=== PATIENT | male | born 1950 | race Caucasian/White ===

== ENCOUNTER 2018-11-22 18:28 | Emergency (ER) | payer MEDICARE ==
[2018-11-22 19:26] VITALS: RESP 18
[2018-11-22 21:29] LABS: Basophils % (A) 0 %; Eosinophils % (A) 1 %; HCT 42.5 % (39.0-53.0); HGB 14.6 gm/dL (13.0-17.5); Lymphocytes # (A) 0.8 k/uL (1.0-4.8); Lymphocytes % (A) 10 %; MCHC 34.3 g/dL (31.0-37.0); MCV 96.2 fL (80.0-100.0); Mean Platelet Volume 6.9; Monocytes # (A) 0.3 k/uL (0-1.0); Monocytes % (A) 4 %; Neutrophils # (A) 6.9 k/uL (1.3-7.7); Neutrophils % (A) 85 %; Platelet Count 209 k/uL (150-450); RBC 4.42 m/uL (4.30-5.90); RDW 12.6 % (11.5-15.5); WBC 8.2 k/uL (3.8-10.6)
--- NOTE | 2018-11-22 21:31 | ED ---
Abdominal Pain HPI - General Chief Complaint: Abdominal Pain Stated Complaint: upper abdominal pain, nausea, lower chest pain Time Seen by Provider: 11/22/18 21:12 Source: patient Mode of arrival: ambulatory Limitations: no limitations - History of Present Illness Initial Comments: This patient is 68-year-old man who presents with 1-2 days of abdominal complaints. He states that going on 2 days now he has felt like there is been a little bit of bloating in his upper abdomen. He states that when he woke this morning there was discomfort there that he describes as a fullness or bloating. He also noted some nausea throughout the day. He states that the symptoms have caused him to not eat anything since he had eaten last night. The patient has not had fevers or chills. No vomiting. He states that he has had 4-5 bowel movements today which is unusual for him but he did not describe it as being diarrhea. No blood or tarry stool. No change in urination. No testicular mass or pain. No symptoms to the legs. No chest symptoms. He states that the pain is constant, mild, bloating feeling. He has not noted worsening or relieving symptoms. MD Complaint: abdominal pain Onset/Timin -: days(s) Location: LUQ, RUQ, epigastric Radiation: back Migration to: no migration Severity: mild Quality: fullness Consistency: constant Improves With: nothing Worsens With: nothing Associated Symptoms: nausea - Related Data Home Medications Medication Instructions Recorded Confirmed Aspirin [[place] Aspirin EC] 81 mg PO DAILY 11/22/18 11/22/18 Atorvastatin [Lipitor] 10 mg PO DAILY 11/22/18 11/22/18 Calcium Carbonate [Calcium] 600 mg PO DAILY 11/22/18 11/22/18 Fluticasone Nasal [place] [Flonase 2 spr EA NOSTRIL DAILY 11/22/18 11/22/18 Nasal [place]] Glucosamine-Chondr 500-400Mg 1 tab PO DAILY 11/22/18 11/22/18 Montelukast [Singulair] 10 mg PO DAILY 11/22/18 11/22/18 Previous Rx's Medication Instructions Recorded Famotidine [Pepcid] 20 mg PO BID #14 tablet 11/23/18 Allergies Allergy/AdvReac Type Severity Reaction Status Date / Time No Known Allergies Allergy Verified 11/22/18 20:46 Review of Systems ROS Statement: Those systems with pertinent positive or pertinent negative responses have been documented in the HPI. ROS Other: All systems not noted in ROS Statement are negative. Constitutional: Denies: fever, chills Respiratory: Denies: cough, dyspnea Cardiovascular: Denies: chest pain, palpitations, edema Gastrointestinal: Reports: abdominal pain, nausea. Denies: vomiting, diarrhea, constipation, melena, hematochezia Genitourinary: Denies: dysuria, hematuria, testicular pain, testicular mass Musculoskeletal: Denies: back pain Skin: Denies: rash Neurological: Denies: headache, weakness, numbness Past Medical History Past Medical History: No Reported History History of Any Multi-Drug Resistant Organisms: None Reported Past Surgical History: Orthopedic Surgery Smoking Status: Never smoker Past Alcohol Use History: None Reported, Rare Past Drug Use History: None Reported General Exam Limitations: no limitations General appearance: alert, in no apparent distress Head exam: Present: atraumatic, normocephalic Eye exam: Present: normal appearance. Absent: scleral icterus, conjunctival injection ENT exam: Present: normal oropharynx, mucous membranes moist Neck exam: Present: normal inspection Respiratory exam: Present: normal lung sounds bilaterally. Absent: respiratory distress, wheezes, rales, rhonchi, stridor Cardiovascular Exam: Present: regular rate, normal rhythm, normal heart sounds. Absent: systolic murmur, diastolic murmur, rubs, gallop GI/Abdominal exam: Present: soft, normal bowel sounds. Absent: distended, tenderness, guarding, rebound, rigid, mass, pulsatile mass, hernia Extremities exam: Present: normal inspection, normal capillary refill. Absent: pedal edema, calf tenderness Back exam: Present: normal inspection. Absent: CVA tenderness (R), CVA tenderness (L) Neurological exam: Present: alert Skin exam: Present: warm, dry, intact, normal color. Absent: rash Course Vital Signs 11/22/18 19:21 Temperature 98.0 F Pulse Rate 66 Respiratory 18 Rate Blood Pressure 170/80 O2 Sat by Pulse 99 Oximetry Medical Decision Making - Lab Data Result diagrams: 11/22/18 20:54 11/22/18 20:54 Lab Results 11/22/18 11/22/18 11/22/18 Range/Units 20:54 20:54 20:54 WBC 8.2 (3.8-10.6) k/uL RBC 4.42 (4.30-5.90) m/uL Hgb 14.6 (13.0-17.5) gm/dL Hct 42.5 (39.0-53.0) % MCV 96.2 (80.0-100.0) fL MCH 33.0 (25.0-35.0) pg MCHC 34.3 (31.0-37.0) g/dL RDW 12.6 (11.5-15.5) % Plt Count 209 (150-450) k/uL Neutrophils % 85 % Lymphocytes % 10 % Monocytes % 4 % Eosinophils % 1 % Basophils % 0 % Neutrophils # 6.9 (1.3-7.7) k/uL Lymphocytes # 0.8 L (1.0-4.8) k/uL Monocytes # 0.3 (0-1.0) k/uL Eosinophils # 0.0 (0-0.7) k/uL Basophils # 0.0 (0-0.2) k/uL Sodium 138 (137-145) mmol/L Potassium 4.2 (3.5-5.1) mmol/L Chloride 107 (98-107) mmol/L Carbon Dioxide 23 (22-30) mmol/L Anion Gap 8 mmol/L BUN 15 (9-20) mg/dL Creatinine 0.81 (0.66-1.25) mg/dL Est GFR (CKD-EPI)AfAm >90 (>60 ml/min/1.73 sqM) Est GFR (CKD-EPI)NonAf >90 (>60 ml/min/1.73 sqM) Glucose 115 H (74-99) mg/dL Plasma Lactic Acid Andrew (0.7-2.0) mmol/L Calcium 9.4 (8.4-10.2) mg/dL Total Bilirubin 1.6 H (0.2-1.3) mg/dL AST 27 (17-59) U/L ALT 28 (21-72) U/L Alkaline Phosphatase 72 (38-126) U/L Troponin I <0.012 (0.000-0.034) ng/mL Total Protein 6.8 (6.3-8.2) g/dL Albumin 4.0 (3.5-5.0) g/dL Amylase 44 (30-110) U/L Lipase 112 (23-300) U/L Urine Color Urine Appearance (Clear) Urine pH (5.0-8.0) Ur Specific [place] (1.001-1.035) Urine Protein (Negative) Urine Glucose (UA) (Negative) Urine Ketones (Negative) Urine Blood (Negative) Urine Nitrite (Negative) Urine Bilirubin (Negative) Urine Urobilinogen (<2.0) mg/dL Ur Leukocyte Esterase (Negative) 11/22/18 11/22/18 Range/Units 21:43 23:30 WBC (3.8-10.6) k/uL RBC (4.30-5.90) m/uL Hgb (13.0-17.5) gm/dL Hct (39.0-53.0) % MCV (80.0-100.0) fL MCH (25.0-35.0) pg MCHC (31.0-37.0) g/dL RDW (11.5-15.5) % Plt Count (150-450) k/uL Neutrophils % % Lymphocytes % % Monocytes % % Eosinophils % % Basophils % % Neutrophils # (1.3-7.7) k/uL Lymphocytes # (1.0-4.8) k/uL Monocytes # (0-1.0) k/uL Eosinophils # (0-0.7) k/uL Basophils # (0-0.2) k/uL Sodium (137-145) mmol/L Potassium (3.5-5.1) mmol/L Chloride (98-107) mmol/L Carbon Dioxide (22-30) mmol/L Anion Gap mmol/L BUN (9-20) mg/dL Creatinine (0.66-1.25) mg/dL Est GFR (CKD-EPI)AfAm (>60 ml/min/1.73 sqM) Est GFR (CKD-EPI)NonAf (>60 ml/min/1.73 sqM) Glucose (74-99) mg/dL Plasma Lactic Acid Andrew 1.3 (0.7-2.0) mmol/L Calcium (8.4-10.2) mg/dL Total Bilirubin (0.2-1.3) mg/dL AST (17-59) U/L ALT (21-72) U/L Alkaline Phosphatase (38-126) U/L Troponin I (0.000-0.034) ng/mL Total Protein (6.3-8.2) g/dL Albumin (3.5-5.0) g/dL Amylase (30-110) U/L Lipase (23-300) U/L Urine Color Yellow Urine Appearance Clear (Clear) Urine pH 6.5 (5.0-8.0) Ur Specific [place] 1.021 (1.001-1.035) Urine Protein Negative (Negative) Urine Glucose (UA) Negative (Negative) Urine Ketones 2+ H (Negative) Urine Blood Negative (Negative) Urine Nitrite Negative (Negative) Urine Bilirubin Negative (Negative) Urine Urobilinogen <2.0 (<2.0) mg/dL Ur Leukocyte Esterase Negative (Negative) - EKG Data -: EKG Interpreted by Ms EKG shows normal: sinus rhythm, axis (Unusual P axis), intervals (Normal), QRS complexes (Normal) Rate: normal (Rate 62 bpm) Interpretation: nonspecific ST-T wave changes Disposition Clinical Impression: Abdominal pain Disposition: HOME SELF-CARE Condition: Good Instructions: Abdominal Pain (ED) Prescriptions: Famotidine [Pepcid] 20 mg PO BID #14 tablet Is patient prescribed a controlled substance at d/c from ED?: No Referrals: Raymon Costa MD [Primary Care Provider] - 1-2 days
[2018-11-22 21:40] LABS: ALT 28 U/L (21-72); AST 27 U/L (17-59); Alkaline Phosphatase 72 U/L (38-126); Amylase 44 U/L (30-110); Anion Gap 8 mmol/L; Blood Urea Nitrogen 15 mg/dL (9-20); Calcium 9.4 mg/dL (8.4-10.2); Carbon Dioxide 23 mmol/L (22-30); Chloride 107 mmol/L (98-107); Glucose 115 mg/dL (74-99); Lipase 112 U/L (23-300); Potassium 4.2 mmol/L (3.5-5.1); Sodium 138 mmol/L (137-145); Total Bilirubin 1.6 mg/dL (0.2-1.3); Total Protein 6.8 g/dL (6.3-8.2)
--- NOTE | 2018-11-22 21:41 | XR ---
EXAMINATION TYPE: XR KUB DATE OF EXAM: 11/22/2018 COMPARISON: NONE HISTORY: Abdominal pain TECHNIQUE: 2 views FINDINGS: 2 upright views show no sign of intestinal obstruction or pneumoperitoneum. Fecal pattern i s normal. Lung bases are clear. There are no pathologic calcifications. IMPRESSION: Nonacute abdomen.
[2018-11-22] MEDS ORDERED: SODIUM CHLORIDE 0.9% 500 ML 500 ML IV STA (21:44)
[2018-11-22] MEDS ORDERED: ONDANSETRON 4 MG/2 ML VIAL IVP STA (21:44)
--- NOTE | 2018-11-22 23:07 | US ---
EXAMINATION TYPE: US abdomen limited DATE OF EXAM: 11/22/2018 COMPARISON: NONE CLINICAL HISTORY: Pain, attention RUQ. Bloating EXAM MEASUREMENTS: Liver Length: 14.2 cm Gallbladder Wall: 0.2 cm CBD: 0.4 cm Right Kidney: 10.7 x 4.8 x 4.5 cm Pancreas: Obscured by bowel gas Liver: wnl Gallbladder: wnl Evidence for sonographic Boo's sign: No CBD: wnl Right Kidney: wnl IMPRESSION: Negative right upper quadrant abdominal sonogram. No gallstones or dilated ducts. No foca l liver defect.
[2018-11-22] MEDS ORDERED: MAG HYDROX/AL HYDROX/SIMETH 30 ML, HYOSCYAMINE ELIXIR 10 ML, CIMETIDINE HCL 300 MG, LID... PO STA ×4 (23:52)
[2018-11-22 23:53] LABS: Appearance,Urine Clear (Clear); Bilirubin,Urine Negative (Negative); Blood,Urine Negative (Negative); Color,Urine Yellow; Glucose,Urine (UA) Negative (Negative); Ketones,Urine 2+ (Negative); Leukocyte Esterase,Urine Negative (Negative); Nitrite,Urine Negative (Negative); PH, Urine 6.5 (5.0-8.0); Protein,Urine Negative (Negative); Specific Gravity,Urine 1.021 (1.001-1.035); Urobilinogen,Urine <2.0 mg/dL (<2.0)
[2018-11-23 01:14] VITALS: BP 159/81; PULSE 62; TEMP 98.5
== END 2018-11-23 01:16 | disposition home or self-care (01) ==
LOC: EC 18:28
DX: R10.11 Right upper quadrant pain (principal); R10.12 Left upper quadrant pain; R10.13 Epigastric pain; R11.0 Nausea; M54.9 Dorsalgia, unspecified; Z79.51 Long term (current) use of inhaled steroids; Z79.82 Long term (current) use of aspirin; Z79.899 Other long term (current) drug therapy
CPT/HCPCS: 36415; 93005; 80053; 82150; 83605; 83690; 84484; 85025; 81003; 74018; 76705; 99284; 96374; 96361 ×3; J2405

== ENCOUNTER → 2020-09-25 | Outpatient (CLI) | payer MEDICARE ==
--- NOTE | 2020-09-25 12:44 | US ---
EXAMINATION TYPE: US duplex aorta DATE OF EXAM: 09/25/2020 COMPARISON: NONE CLINICAL HISTORY: Abdominal aortic aneurysm w/o rupture. No HTN. No family hx of AAA. EXAM MEASUREMENTS: Abdominal Aorta: Proximal: 2.2 x 2.1 cm Mid: 2.0 x 2.1 cm Distal: 1.9 x 1.9 cm Bifurcation: Right- 0.9 x 1.1 cm Left- 1.0 x 1.0 cm Limited visualization of the proximal and mid aortic junction due to overlying bowel gas No AAA visualized in portions of aorta seen IMPRESSION: No abdominal aortic aneurysm seen.
== END | disposition home or self-care (01) ==
LOC: RADUSWWP 07:27
PROVIDERS: ATTEND Family Medicine
DX: I71.4 Abdominal aortic aneurysm, without rupture (principal)
CPT/HCPCS: 93979

== ENCOUNTER 2022-02-17 16:23 | Emergency (ER) | payer MEDICARE ==
[2022-02-17 16:37] VITALS: BP 167/85; PULSE 66; RESP 18; TEMP 98.9
--- NOTE | 2022-02-17 17:40 | XR ---
EXAMINATION TYPE: XR hand complete LT DATE OF EXAM: 02/17/2022 5:22 PM INDICATION: Patient age:Male; 71 years old; Reason for study: injury COMPARISON: None TECHNIQUE: 3 views of the left hand were obtained. FINDINGS: The second, third and fourth digits demonstrate soft tissue injury. There is an acute intra -articular fracture through the distal phalanx of the second digit as well as to the tuft of the thir d digit. Questionable third digit distal phalanx fracture seen only on lateral view, evaluation sligh tly limited due to overlying soft tissues. There is soft tissue swelling of the second, third and fourth digits. No radiopaque foreign bodies id entified. IMPRESSION: 1. Acute intra-articular fracture of the distal phalanges of the second digit. 2. Acute fracture through the distal phalanges of the third digit. 3. Suspected fracture of the distal phalanx of the fourth digit seen on lateral view only. 4. Soft tissue swelling of the second through fourth digits
[2022-02-17] MEDS ORDERED: LIDOCAINE 1% INJ 10MG/ML (20 ML MDV) SQ ONE (18:04)
--- NOTE | 2022-02-17 18:30 | ED ---
Upper Extremity HPI - General Chief Complaint: Extremity Injury, Upper Stated Complaint: Finger Lac Time Seen by Provider: 02/17/22 18:02 Source: patient, RN notes reviewed Mode of arrival: ambulatory Limitations: no limitations - History of Present Illness Initial Comments: This is a pleasant, [id number] 71-year-old male presents to the emergency department after sustaining lacerations to his second, third, and fourth fingers from a table saw. Patient was cutting wood at about 3 PM when the incident occurred. Patient had x-rays ordered in triage which does show open fractures to each finger including intra-articular fracture to the index finger. Patient's last tetanus is unknown. Patient has no history of immunosuppression or diabetes. Nonsmoker. No other injuries. Denies any significant pain. No headache, no fever or chills, no changes in vision or hearing, no sore throat or difficulty with speech, no neck pain, no chest pain or shortness of breath, no abdominal pain, no nausea or vomiting, no changes in urination or bowel movements, no numbness or tingling, no skin rashes or lesions. MD Complaint: Injury to:: left, finger Onset/Timin -: hour(s) - Related Data Home Medications Medication Instructions Recorded Confirmed Aspirin [[place] Aspirin EC] 81 mg PO DAILY 11/22/18 11/22/18 Atorvastatin [Lipitor] 10 mg PO DAILY 11/22/18 11/22/18 Calcium Carbonate [Calcium] 600 mg PO DAILY 11/22/18 11/22/18 Fluticasone Nasal [place] [Flonase 2 spr EA NOSTRIL DAILY 11/22/18 11/22/18 Nasal [place]] Glucosamine-Chondr 500-400Mg 1 tab PO DAILY 11/22/18 11/22/18 Montelukast [Singulair] 10 mg PO DAILY 11/22/18 11/22/18 Previous Rx's Medication Instructions Recorded Famotidine [Pepcid] 20 mg PO BID #14 tablet 11/23/18 Cephalexin [Keflex] 500 mg PO Q6HR #40 cap 02/17/22 HYDROcodone/APAP 5-325MG [[place] 1 tab PO Q6HR PRN 3 Days #12 tab 02/17/22 5-325] Allergies Allergy/AdvReac Type Severity Reaction Status Date / Time No Known Allergies Allergy Verified 11/22/18 20:46 Review of Systems ROS Statement: Those systems with pertinent positive or pertinent negative responses have been documented in the HPI. ROS Other: All systems not noted in ROS Statement are negative. Past Medical History Past Medical History: No Reported History History of Any Multi-Drug Resistant Organisms: None Reported Past Surgical History: Orthopedic Surgery Past Psychological History: No Psychological Hx Reported Smoking Status: Never smoker Past Alcohol Use History: None Reported, Rare Past Drug Use History: None Reported General Exam - General Exam Comments Initial Comments: Patient in no significant distress on initial evaluation. Cranial nerves II through XII grossly intact Limitations: no limitations General appearance: alert, in no apparent distress Eye exam: Present: normal appearance, PERRL, EOMI. Absent: scleral icterus, conjunctival injection, periorbital swelling ENT exam: Present: normal exam Neck exam: Present: normal inspection Respiratory exam: Present: normal lung sounds bilaterally. Absent: respiratory distress, wheezes, rales, rhonchi, stridor Cardiovascular Exam: Present: regular rate, normal rhythm, normal heart sounds. Absent: systolic murmur, diastolic murmur, rubs, gallop, clicks Extremities exam: Present: tenderness, normal capillary refill, other. Absent: normal inspection (Patient has multiple lacerations to distal aspects of the second through fourth digits of the left hand, involving the distal phalanxes. Appears to be adequate blood flow. Capillary refill is less than 2 seconds. Radial pulse 2+ out of 4. Patient's range of motion is limited at the DIP ), full ROM, pedal edema, joint swelling Back exam: Present: normal inspection Neurological exam: Present: alert, oriented X3, CN II-XII intact, other (Full range of motion and neurological function involving fingers of the left hand with respect to all joints aside from the DIP of the index finger. Sensation intact to light touch and pinprick.). Absent: motor sensory deficit Psychiatric exam: Present: normal affect, normal mood Course Vital Signs 02/17/22 16:32 Temperature 98.9 F Pulse Rate 66 Respiratory 18 Rate Blood Pressure 167/85 O2 Sat by Pulse 98 Oximetry Procedures - Laceration Laceration #1 Consent Obtained: verbal consent Site: upper extremity (Left index finger) Size (cm): 2 Description: irregular Depth: simple, single layer Anesthesia Technique: nerve block (Digital block) Amount (mls): 2 Pre-repair: wound explored, irrigated extensively Size of Sutures: 4-0 Number of Sutures: 2 Technique: simple, interrupted Patient Tolerated Procedure: well, no complications Laceration #2 Consent Obtained: verbal consent Indication: laceration Site: upper extremity (Left middle finger) Size (cm): 3 Description: irregular Depth: simple, single layer Anesthetic Used: lidocaine 1%, without epi Anesthesia Technique: nerve block (Digital block) Amount (mls): 2 Pre-repair: wound explored, irrigated extensively, extensive debridement (2 x 2 centimeters with sterile scissors and forceps) Type of Sutures: nylon Size of Sutures: 4-0 Number of Sutures: 3 Technique: simple, interrupted Patient Tolerated Procedure: well, no complications Laceration #3 Consent Obtained: verbal consent Indication: laceration Site: upper extremity (Left ring finger) Size (cm): 2 Description: irregular Depth: simple, single layer Anesthetic Used: lidocaine 1% Anesthesia Technique: nerve block (Digital block) Amount (mls): 2 Pre-repair: wound explored, irrigated extensively, deep structures intact, wound margins revised Type of Sutures: nylon Size of Sutures: 4-0 Number of Sutures: 2 Technique: simple, interrupted Patient Tolerated Procedure: well, no complications Medical Decision Making - Medical Decision Making Patient has lacerations involving the distal aspect of the left second through fourth fingers which require evaluation by hand surgery. Discussed case with Dr. [facility]. We'll have the patient follow up with Dr. Enrique. Wound care discussed in detail. Return if follow-up parameters discussed in detail. All questions answered. Starter pack for cephalexin and Tylenol 3. Patient was told to return to the ER for any signs or symptoms worsen. Told to return immediately if any other problems arise. All questions answered. Treatment plan discussed. Patient in agreement Every effort has been made to ensure accuracy of this dictation. However, due to the limitations of electronic medical records and dictation devices, errors in charting still occur. Disposition Clinical Impression: Fracture of finger, left, open Narrative: "Rashes to the distal aspect of the left index finger, middle finger, and ring finger. Displaced fracture of the distal camila of the left index finger and middle finger. Both comminuted. Intra-articular fracture at the DIP of the left index finger. Left forefinger has a distal tuft fracture as well. Disposition: HOME SELF-CARE Condition: Good Instructions (If sedation given, give patient instructions): Hand Fracture (ED) Additional Instructions: Follow-up with orthopedics as directed. Leave the dressing in place. Call tomorrow morning at 8 AM. Return to the ER if any problems arise. Take antibiotics as directed. Return to the ER immediately if any symptoms worsen, new symptoms arise, or any other problems develop. Keep her hand elevated, suture removal per orthopedics Prescriptions: Cephalexin [Keflex] 500 mg PO Q6HR #40 cap HYDROcodone/APAP 5-325MG [[place] 5-325] 1 tab PO Q6HR PRN 3 Days #12 tab PRN Reason: Pain Is patient prescribed a controlled substance at d/c from ED?: Yes When asked, does pt state using other controlled substances?: No If prescribed controlled substance>3 days was MAPS reviewed?: Prescribed <3 Days Referrals: Rachell Enrique DO [Doctor of Osteopathic Medicine] - 02/18/22 8:00 am Time of Disposition: 19:51
[2022-02-17] MEDS ORDERED: BACITRACIN OINT 1 EACH PACKET TOPICAL ONE (19:27)
[2022-02-17] MEDS ORDERED: ACET/COD 300 MG/30 MG STARTER PACK 6 TAB BTL PO STA (19:50)
[2022-02-17] MEDS ORDERED: CEPHALEXIN 500MG STARTER PACK 4 CAP BTL PO STA (19:50)
[2022-02-17] MEDS ORDERED: DIPH,PERTUS(ACELL)TETVAC-LF 0.5 ML VIAL IM ONE (20:11)
== END 2022-02-17 20:37 | disposition home or self-care (01) ==
LOC: EC 16:23
DX: S62.631B Displaced fracture of distal phalanx of left index finger, initial encounter for open fracture (principal); W26.8XXA Contact with other sharp object(s), not elsewhere classified, initial encounter; Y93.H2 Activity, gardening and landscaping
CPT/HCPCS: 73130; 90715; 99283; 96365; 12014; 90471; J0690; J2001

== ENCOUNTER → 2023-02-09 | Outpatient (CLI) | payer MEDICARE ==
--- NOTE | 2023-02-10 09:23 | MR ---
EXAMINATION TYPE: MR brain wo/w con DATE OF EXAM: 02/09/2023 9:50 AM CLINICAL INDICATION:Male, 72 years old with history of H53.9 CHANGE IN VISION; Change in vision, TIA COMPARISON: None TECHNIQUE: Multi planar, multi sequence imaging was performed through the brain including: T1, T2, In version recovery, susceptibility weighted imaging and gradient echo imaging and Diffusion weighted im aging. The patient was then given intravenous contrast and multi planar, T1 fat-saturation images wer e obtained. IV Contrast: 8 cc Gadavist FINDINGS: The globes and orbits are symmetrical the intraconal and extraconal fat is maintained. The occipital lobe is grossly unremarkable. The optic chiasm is within normal limits.The foley-white junctions, vent ricular system, basal cisterns appear unremarkable. Diffusion-weighted imaging shows no evidence of r estricted diffusion to suggest acute/subacute infarct. Intracranial arterial flow voids are maintaine d. Midline structures show no abnormality. Scattered foci of high T2 signal intensity are seen within the periventricular white matter. The susceptibility weighted images do not reveal any evidence for micro-hemorrhage. After administration of gadolinium, no abnormal enhancement is seen. The bone marrow signal is within normal limits. Paranasal sinuses and mastoid air cells: Left maxillary sinus retention cyst. Visualized orbits: Orbital contents are intact. IMPRESSION: 1. No evidence of intracranial mass, acute/subacute infarct, or abnormal enhancement. 2. Nonspecific white matter changes, likely related to small vessel ischemic disease
== END | disposition home or self-care (01) ==
LOC: RADMRIMAIN 08:44
PROVIDERS: ATTEND Internal Medicine
DX: H53.9 Unspecified visual disturbance (principal); R90.82 White matter disease, unspecified
CPT/HCPCS: 70553; A9585

== ENCOUNTER → 2023-02-11 | Outpatient (CLI) | payer MEDICARE ==
--- NOTE | 2023-02-11 08:01 | US ---
EXAMINATION TYPE: US duplex aorta DATE OF EXAM: 02/11/2023 COMPARISON: Aortic ultrasound 09/25/2020 CLINICAL HISTORY: I65.23 Atherosclerosis yosvany carotids, I71.40 AAA. TECHNIQUE: Multiple sonographic images of the abdominal aorta are obtained. FINDINGS: EXAM MEASUREMENTS: Abdominal Aorta: Proximal: 1.8 x 1.8cm Mid: 2.0 x 1.8cm Distal: 2.6 x 2.5cm Bifurcation: RT: 1.1 x 1.1cm LT: 1.1 x 1.1cm MANAGER ELECTRICAL NOTES: *limited visualization of proximal aorta due to overlying bowel gas. No evidence o f AAA at this time, slight bulging of distal aorta, still measuring WNL Distal abdominal aortic fusiform ectasia. IMPRESSION: Distal abdominal aortic ectasia without criteria for aneurysm.
--- NOTE | 2023-02-11 08:03 | US ---
EXAMINATION TYPE: US carotid duplex BILAT DATE OF EXAM: 02/11/2023 COMPARISON: NONE CLINICAL HISTORY: I65.23 Atherosclerosis yosvany carotids, I71.40 AAA. TECHNIQUE: Carotid duplex ultrasound examination. Indirect Doppler criteria was utilized. FINDINGS: EXAM MEASUREMENTS: RIGHT: Peak Systolic Velocity (PSV) cm/sec ----- Right CCA: 87.7 ----- Right ICA: 147 ----- Right ECA: 146 ICA/CCA ratio: 1.7 RIGHT: End Diastole cm/sec ----- Right CCA: 21.7 ----- Right ICA: 44.4 ----- Right ECA: 21.4 LEFT: Peak Systolic Velocity (PSV) cm/sec ----- Left CCA: 98.5 ----- Left ICA: 216 ----- Left ECA: 170 ICA/CCA ratio: 2.2 LEFT: End Diastole cm/sec ----- Left CCA: 25.1 ----- Left ICA: 50.4 ----- Left ECA: 23.7 VERTEBRALS (direction of flow): Right Vertebral: Antegrade Left Vertebral: Antegrade Rhythm: Normal ROUSTABOUT PUSHER NOTES: Moderate plaque bilateral bifurcations. Increased velocities right ICA, right ECA, left ICA, left ECA IMPRESSION: Moderate atherosclerotic plaque at both carotid bifurcations. Approximately 50-69% stenosis at the origins of the bilateral internal carotid arteries with left greater than right. Criteria for Assigning % of Stenosis / Diameter reduction (Estimation based on the indirect measurements of the internal carotid artery velocities (ICA PSV). 1. Normal (no stenosis)=ICA PSV < 125 cm/s: ratio < 2.0: ICA EDV<40 cm/s. 2. Less than 50% stenosis=ICA PSV < 125 cm/s: ratio < 2.0: ICA EDV<40 cm/s. 3. 50 to 69% stenosis=ICA PSV of 125 to 230 cm/s: ration 2.0 ? 4.0: ICA EDV 40-100 cm/s. 4. Greater than 70% stenosis to near occlusion= ICA PSV > 230 cm/s: ratio > 4.0: ICA EDV > 100 cm/s. 5. Near occlusion= ICA PSV velocities may be low or undetectable: variable ratio and ICA EDV. 6. Total occlusion=unable to detect flow.
== END | disposition home or self-care (01) ==
LOC: RADUSWWP 06:53
PROVIDERS: ATTEND Internal Medicine
DX: I65.23 Occlusion and stenosis of bilateral carotid arteries (principal); I77.811 Abdominal aortic ectasia
CPT/HCPCS: 93880; 93979

== ENCOUNTER → 2023-03-29 | Outpatient (CLI) | payer MEDICARE ==
--- NOTE | 2023-03-29 18:42 | CA ---
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 LV Systolic Volume MOD 4C 45.7 cm??? LV Ejection Fraction MOD 4C 50.3 % LV Diastolic Length 4C 8.4 cm LV Systolic Length 4C 7.2 cm LV Diastolic Volume MOD 2C 88.8 cm??? LV Systolic Volume MOD 2C 39.7 cm??? LV Ejection Fraction MOD 2C 55.4 % LV Diastolic Length 2C 8.8 cm LV Systolic Length 2C 7.5 cm LA Volume 44.7 cm??? 18 - 58 / 22 - 52 cm??? M-MODE Aortic Root Diameter MM 3.6 cm MV E Point Septal Separation 0.5 cm AV Cusp Separation MM 2.2 cm DOPPLER AV Peak Velocity 109.4 cm/s AV Peak Gradient 4.8 mmHg MV Area PHT 2.2 cm??? Mitral E Point Velocity 66.9 cm/s Mitral A Point Velocity 98.2 cm/s Mitral E to A Ratio 0.7 MV Deceleration Time 351.9 ms TR Peak Velocity 237.4 cm/s TR Peak Gradient 22.5 mmHg Right Ventricular Systolic Press 26.4 mmHg FINDINGS Left Ventricle Left ventricular ejection fraction is estimated at 55-60 %. Left ventricular cavity size normal. Moderate concentric left ventricular hypertrophy. No obvious regional wall motion abnormalities.left ventricular cavity size normal. Right Ventricle Mild right ventricular dilatation. Right ventricular systolic pressure within normal limits. Right Atrium Normal right atrial size. Left Atrium Normal left atrial size. Mitral Valve Structurally normal mitral valve. No mitral stenosis, or prolapse.trace to mild mitral regurgitation. Aortic Valve Trileaflet aortic valve. Aortic valve sclerosis. No aortic valve stenosis or regurgitation. Tricuspid Valve Structurally normal tricuspid valve. Trace to mild tricuspid regurgitation. Pulmonic Valve Structurally normal pulmonic valve. Trace pulmonic regurgitation. Pericardium Normal pericardium. No pericardial effusion. Aorta Normal size aortic root and proximal ascending aorta. CONCLUSIONS 1. Normal left ventricle size and systolic function 2. Trace to mild mitral and tricuspid regurgitation Previewed by: Dr. Chey Chaves MD (Electronically Signed) Final Date: 29 Mar 2023 18:41
== END | disposition home or self-care (01) ==
LOC: RADECHMAIN 12:12
PROVIDERS: ATTEND Internal Medicine
DX: I08.1 Rheumatic disorders of both mitral and tricuspid valves (principal); H34.12 Central retinal artery occlusion, left eye
CPT/HCPCS: 93225; 93226; 93306

== ENCOUNTER → 2023-06-08 | Outpatient (CLI) | payer MEDICARE ==
--- NOTE | 2023-06-08 10:36 | US ---
EXAMINATION TYPE: US liver DATE OF EXAM: 06/08/2023 COMPARISON: [facility] 2018 CLINICAL INDICATION: Male, 72 years old with history of R94.5 ABNORMAL RESULTS OF LIVER FUNCTION STUD IES; Elevated liver enzymes. TECHNIQUE: Multiple sonographic images of the right upper quadrant are obtained. FINDINGS: EXAM MEASUREMENTS: Liver Length: 13.0 cm Gallbladder Wall: 0.3 cm CBD: Obscured Right Kidney: 11.2 x 6.4 x 5.4 cm LICENSED OCCUPATIONAL THERAPY ASSISTANT NOTES: Limited due to gas. Pancreas: Obscured Liver: Increased echogenicity. Appears coarse and heterogeneous. Gallbladder: Appears wnl Evidence for sonographic Boo's sign: No CBD: Obscured Right Kidney: No hydronephrosis or masses seen IMPRESSION: Coarsened hepatic echotexture suggestive of hepatocellular disease. No suspicious observations.
== END | disposition home or self-care (01) ==
LOC: RADUSWWP 09:29
PROVIDERS: ATTEND Emergency Medicine Emergency Medical Services
DX: R94.5 Abnormal results of liver function studies (principal); R79.89 Other specified abnormal findings of blood chemistry
CPT/HCPCS: 76705

== ENCOUNTER 2024-07-18 09:58 | Day surgery (SDC) | payer MEDICARE, OTHER ==
[2024-07-18] MEDS ORDERED: LACTATED RINGERS 1,000 ML BAG ONE (11:19)
[2024-07-18] MEDS ORDERED: PROPOFOL 10 MG/ML 20 ML VIAL IV ONE (11:19)
--- NOTE | 2024-07-20 15:57 | PCN ---
PROCEDURE NOTE REQUESTING PHYSICIAN: Patrice Wallace. BRIEF HISTORY: The patient is a 73-year-old pleasant white male scheduled for an elective colonoscopy as a part of evaluation of prior history of colon polyps. Last colonoscopy was 5 years ago. PROCEDURE PERFORMED: Colonoscopy with biopsy. PREOPERATIVE DIAGNOSIS: History of colon polyps. ANESTHESIA: IV sedation per Anesthesia. DESCRIPTION OF PROCEDURE: After informed consent was obtained from the patient, he was brought in to the endoscopy unit. IV conscious sedation administered by Anesthesia under continuous monitoring. Initial digital rectal examination was normal. The Olympus CF-180 video colonoscope was then inserted in the rectum and gradually advanced to the cecum. Careful examination was performed and the scope was gradually being withdrawn. The ileocecal valve and appendiceal orifice were visualized and appeared normal. The prep was excellent. At the base of the cecum, there was a 3 to 4 mm polyp that was removed by cold biopsy. Ascending colon, transverse colon appeared normal. In the transverse colon, there was a 3 mm polyp that was removed by cold biopsy. Descending colon, sigmoid colon, and rectum appeared normal. In the rectum, retroflexion was performed, no lesions were noted, and the patient tolerated the procedure well. IMPRESSION: 1. A 5-mm cecal polyp, status post removal by cold biopsy. 2. A 3-mm transverse colon polyp status post cold biopsy. RECOMMENDATIONS: Findings of this examination were discussed with the patient as well as his family. He was advised to follow up with the biopsy results and if the biopsy reveals adenoma, he can have a repeat colonoscopy in 5 years. MMODL / IJN: [id number] /
== END 2024-07-18 12:25 ==
LOC: ORWHC2ENDO 09:58
PROVIDERS: ATTEND Internal Medicine Gastroenterology
DX: Z12.11 Encounter for screening for malignant neoplasm of colon (principal); D12.4 Benign neoplasm of descending colon; K52.9 Noninfective gastroenteritis and colitis, unspecified; E78.5 Hyperlipidemia, unspecified; F17.200 Nicotine dependence, unspecified, uncomplicated; Z86.73 Personal history of transient ischemic attack (TIA), and cerebral infarction without residual deficits; Z86.010 Personal history of colon polyps; Z79.899 Other long term (current) drug therapy
CPT/HCPCS: 45380; 88305

== ENCOUNTER 2024-12-30 18:05 | Emergency (ER) | payer MEDICARE, OTHER ==
[2024-12-30 18:16] VITALS: TEMP 98.2
--- NOTE | 2024-12-30 18:40 | ED ---
General Adult HPI - General Chief complaint: Fall Stated complaint: fall Time Seen by Provider: 12/30/24 18:29 Source: patient, RN notes reviewed Mode of arrival: ambulatory Limitations: no limitations - History of Present Illness Initial comments: Patient is a 74-year-old male presenting to the emergency department with complaints of low back pain. Patient had a fall earlier this morning off a trailer. Patient landed directly on his lower back. Patient did have some discomfort getting up earlier however felt much better on the ride here and was able to walk to the emergency department without difficulty. No incontinence or retention of bowel or bladder. No leg weakness or loss of sensation. No head injury or loss of consciousness - Related Data Home Medications Medication Instructions Recorded Confirmed Aspirin [[place] Aspirin EC] 81 mg PO DAILY 11/22/18 11/22/18 Atorvastatin [Lipitor] 10 mg PO DAILY 11/22/18 11/22/18 Calcium Carbonate [Calcium] 600 mg PO DAILY 11/22/18 11/22/18 Fluticasone Nasal [place] [Flonase 2 spr EA NOSTRIL DAILY 11/22/18 11/22/18 Nasal [place]] Glucosamine-Chondr 500-400Mg 1 tab PO DAILY 11/22/18 11/22/18 Montelukast [Singulair] 10 mg PO DAILY 11/22/18 11/22/18 Previous Rx's Medication Instructions Recorded Famotidine [Pepcid] 20 mg PO BID #14 tablet 11/23/18 Cephalexin [Keflex] 500 mg PO Q6HR #40 cap 02/17/22 HYDROcodone/APAP 5-325MG [[place] 1 tab PO Q6HR PRN 3 Days #12 tab 02/17/22 5-325] Cyclobenzaprine [Flexeril] 10 mg PO TID PRN #20 tablet 12/30/24 Ibuprofen [Motrin] 600 mg PO Q6HR PRN #20 tab 12/30/24 Allergies Allergy/AdvReac Type Severity Reaction Status Date / Time No Known Allergies Allergy Verified 12/30/24 18:16 Review of Systems ROS Statement: Those systems with pertinent positive or pertinent negative responses have been documented in the HPI. ROS Other: All systems not noted in ROS Statement are negative. Constitutional: Denies: fever Eyes: Denies: eye pain ENT: Denies: ear pain Cardiovascular: Denies: chest pain Gastrointestinal: Denies: abdominal pain Musculoskeletal: Reports: as per HPI, back pain Neurological: Denies: headache, weakness, confusion Past Medical History Past Medical History: No Reported History History of Any Multi-Drug Resistant Organisms: None Reported Past Surgical History: Orthopedic Surgery Past Psychological History: No Psychological Hx Reported Smoking Status: Never smoker Past Alcohol Use History: Rare Past Drug Use History: None Reported General Exam Limitations: no limitations General appearance: alert, in no apparent distress Head exam: Present: atraumatic Eye exam: Present: normal appearance Neck exam: Present: normal inspection Respiratory exam: Present: normal lung sounds bilaterally Cardiovascular Exam: Present: regular rate, normal rhythm GI/Abdominal exam: Present: soft. Absent: tenderness Extremities exam: Present: normal inspection, full ROM. Absent: tenderness Back exam: Present: tenderness (Mild tenderness mid lumbar spine) Neurological exam: Present: alert. Absent: motor sensory deficit Expanded Sensory exam: Lower Extremity Light Touch: Normal Motor strength exam: RLE: 5, LLE: 5 Psychiatric exam: Present: normal affect, normal mood Skin exam: Present: normal color Course Vital Signs 12/30/24 18:13 Temperature 98.2 F Pulse Rate 69 Respiratory 16 Rate Blood Pressure 163/68 O2 Sat by Pulse 97 Oximetry Medical Decision Making - Medical Decision Making Was pt. sent in by a medical professional or institution (Dr. PA, AIR PRESS OPERATOR, urgent care, hospital, or [facility]...) When possible be specific @ -No Did you speak to anyone other than the patient for history (EMS, parent, family, police, friend...)? What history was obtained from this source @ -No Did you review nursing and triage notes (agree or disagree)? Why? @ -I reviewed and agree with nursing and triage notes Were old charts reviewed (outside hosp., previous admission, EMS record, old EKG, old radiological studies, urgent care reports/EKG's, [facility] records)? Report findings @ -No old charts were reviewed Differential Diagnosis (chest pain, altered mental status, abdominal pain women, abdominal pain men, vaginal bleeding, weakness, fever, dyspnea, syncope, headache, dizziness, GI bleed, back pain, seizure, CVA, palpatations, mental health, musculoskeletal)? @ -Differential Back Pain: Strain, zoster, cauda equina syndrome, epidural abscess, vertebral osteomyelitis, discitis, fracture, subluxation, disc herniation, DJD, spinal stenosis, dissection, AAA, pancreatitis, peptic ulcer disease, pyelonephritis, kidney stone, this is not meant to be an all-inclusive list. EKG interpreted by me (3pts min.). @ -As above X-rays interpreted by me (1pt min.). @ -X-ray concerning for T12 CT interpreted by me (1pt min.). @ -CT spine shows T12 superior endplate fracture with possible involvement to the T11/T12 disc U/S interpreted by me (1pt. min.). @ -None done What testing was considered but not performed or refused? (CT, X-rays, U/S, labs)? Why? @ -None What meds were considered but not given or refused? Why? @ -None Did you discuss the management of the patient with other professionals (professionals i.e. , PA, AIR PRESS OPERATOR, lab, RT, psych nurse, community mental health social worker, barrel cleaner, teacher, seal delivery vehicle officer, case hardener)? Give summary @ -Case discussed with Dr. Goodman barraza who did review the films and recommends discharge with follow-up this week at his office and providing TLSO brace Was smoking cessation discussed for >3mins.? @ -No Was critical care preformed (if so, how long)? @ -No Were there social determinants of health that impacted care today? How? (Homelessness, low income, unemployed, alcoholism, drug addiction, transportation, low edu. Level, literacy, decrease access to med. care, senior care, rehab)? @ -No Was there de-escalation of care discussed even if they declined (Discuss DNR or withdrawal of care, Hospice)? DNR status @ -No What co-morbidities impacted this encounter? (DM, HTN, Smoking, COPD, CAD, Cancer, CVA, ARF, Chemo, Hep., AIDS, mental health diagnosis, sleep apnea, morbid obesity)? @ -None Was patient admitted / discharged? Hospital course, mention meds given and route, prescriptions, significant lab abnormalities, going to OR and other pertinent info. @ -Patient presents with fall and has T12 fracture. Patient reevaluated and updated. Patient to be discharged with orthopedic follow-up Undiagnosed new problem with uncertain prognosis? @ -No Drug Therapy requiring intensive monitoring for toxicity (Heparin, Nitro, Insulin, Cardizem)? @ -No Were any procedures done? @ -No Diagnosis/symptom? @ -T12 fracture Acute, or Chronic, or Acute on Chronic? @ -Acute Uncomplicated (without systemic symptoms) or Complicated (systemic symptoms)? @ -Default Side effects of treatment? @ -No Exacerbation, Progression, or Severe Exacerbation? @ -No Poses a threat to life or bodily function? How? (Chest pain, [place], DC, pneumonia, PE, COPD, DKA, ARF, appy, cholecystitis, CVA, Diverticulitis, Homicidal, Suicidal, threat to staff... and all critical care pts) @ -No Disposition Clinical Impression: T12 vertebral fracture Disposition: HOME SELF-CARE Condition: Stable Instructions (If sedation given, give patient instructions): Vertebral Compression Fracture (ED) Additional Instructions: Prescription sent to pharmacy. Please do follow-up with your primary care physician in the next couple of days for recheck. Please follow-up with Dr. Uriostegui this week, number provided. Return for increased pain, weakness, loss of sensation, loss of control of bowel or bladder, worsening symptoms or any other concerns Prescriptions: Cyclobenzaprine [Flexeril] 10 mg PO TID PRN #20 tablet PRN Reason: Pain Ibuprofen [Motrin] 600 mg PO Q6HR PRN #20 tab PRN Reason: Pain Is patient prescribed a controlled substance at d/c from ED?: No Referrals: Patrice Wallace DO [Primary Care Provider] - 1-2 days Manuel Uriostegui DO [Doctor of Osteopathic Medicine] - 1-2 days Time of Disposition: 20:39
[2024-12-30] MEDS: KETOROLAC 15 MG/ML 1 ML VIAL IM STA (19:00)
[2024-12-30] MEDS: ORPHENADRINE 30 MG/ML 2 ML VIAL IM STA (19:00)
--- NOTE | 2024-12-30 19:57 | XR ---
EXAMINATION TYPE: XR lumbar spine 2 or 3V DATE OF EXAM: 12/30/2024 6:49 PM COMPARISON: CT lumbar spine 2024. CLINICAL INDICATION: Male, 74 years old with history of fall; [facility] TECHNIQUE: XR lumbar spine 2 or 3V - Frontal, lateral and coned in L5-S1 lateral views of the spine. FINDINGS: 5 lumbar type vertebral bodies are present for the purposes of this examination. Multilevel intervertebral disc space loss. Acute fracture deformity of the T12 superior endplate with approxima tely 40% vertebral body height loss. Celsite atherosclerotic disease of the abdominal aorta. Multilev el facet arthropathy, stress at L4-L5 and L5-S1. No significant spondylolisthesis. IMPRESSION: Suspected mild to moderate compression deformity of the T12 superior endplate. [facility], , 12/30/2024 7:55 PM
--- NOTE | 2024-12-30 20:03 | CT ---
EXAMINATION TYPE: CT lumbar spine wo con DATE OF EXAM: 12/30/2024 7:20 PM COMPARISON: Same day lumbar sacral spine radiograph.. CLINICAL INDICATION: Male, 74 years old with history of t12 fx; PHH, Fall, Lower back pain TECHNIQUE: Multiple axial images were obtained from the midportion of T11 through the sacroiliac cheryl nts. Soft tissue and bone windows in coronal and sagittal planes were obtained and reviewed. 3-D ref ormats of the bones were created on a separate workstation and submitted for review. CT DLP: 1224.6 mGycm, Automated exposure control for dose reduction was used. FINDINGS: Alignment: There are 5 lumbar type vertebral bodies within normal alignment. Acute fracture deformity of the T12 vertebral body with mild (approximately 20-30 %) superior endplat e height loss. Fracture line extends into the T11/T12 intervertebral disc space but does not involve the posterior cortex. No evidence of retropulsion. Remaining visualized thoracic and lumbar spine jaida tebral body heights appear maintained. Osseous structures appear qualitatively demineralized. No evid ence of spondylolysis or significant spondylolisthesis. Mild to moderate multilevel intervertebral di sc space loss and evidence of anterior ossified formation and. Facet arthropathy and mild disc bulgin g at multiple levels causes varying degrees of neural foraminal narrowing. No evidence of high-grade spinal canal stenosis. Partially visualized aneurysmal dilatation of the infrarenal abdominal aorta, evaluate given lack of IV contrast. IMPRESSION: Acute fracture deformity of the T12 vertebral body with mild superior endplate height loss. Fracture line extends into the T11/T12 intervertebral disc space but does not involve the posterior cortex. No evidence of retropulsion. No high-grade spinal canal stenosis. [facility], , 12/30/2024 8:01 PM
[2024-12-30] MEDS: ACET/COD 300 MG/30 MG STARTER PACK 6 TAB BTL PO STA (20:46)
[2024-12-30 20:52] VITALS: BP 133/77; PULSE 59; RESP 18
== END 2024-12-30 20:53 | disposition home or self-care (01) ==
LOC: EC 18:05
DX: S22.089A Unspecified fracture of T11-T12 vertebra, initial encounter for closed fracture (principal); W19.XXXA Unspecified fall, initial encounter
CPT/HCPCS: 72100; 72131; 99284; 96372; J2360; J1885

== ENCOUNTER 2025-01-21 06:33 | Day surgery (SDC) | payer MEDICARE, OTHER ==
--- NOTE | 2025-01-20 15:52 | P.HPOR ---
History of Present Illness H&P Date: 01/03/25 .D:Date: 01/03/25 : 10:30am .T:Title: Jose Daniel Gomez [facility] H&P Age: 74 year Height: 5'8" Weight: 190 lbs BP:130/78 BMI: 28.92 kg/m2 Occupation: Retired VAS: 2 ATTENDING ATTESTATION: I have personally examined the patient and reviewed the history, physical examination, assessment, and plan as documented by MADDIE Martin. I agree with the findings and plan as documented above. I was present for a archer portion of the visit and participated in medical decision making. Total visit time was approximately 30 minutes, with more than 50% spent in counseling regarding diagnosis, prognosis and treatment options. CLINICAL SUMMARY: 74-year-old male presenting with acute T12 compression fracture following a fall from standing height on 12/29/24. Imaging confirms acute fracture with mild superior endplate height loss, without retropulsion or spinal canal stenosis. Patient reports pain exacerbated by positional changes, currently well- controlled with VAS 2/10. Neurologically intact with normal motor strength and sensation except for T12 dermatomal deficit. After discussing treatment options, patient has elected to proceed with T12 kyphoplasty. Conservative measures including TLSO brace and activity modifications have been implemented in the interim. Surgical consent process initiated with detailed discussion of risks, benefits, and alternatives. CC: Thoracic injury DOI: 12/29/24 DOS: n/a IMPRESSION: It was my pleasure to have seen and examined Vince. I reviewed the patient's clinical syndrome, physical findings, and imaging studies during the appointment today. It is my impression that the patient has a diagnosis of. 1. Acute T12 vertebral compression fracture 2. Mechanical low back pain 3. Fall from standing PLAN: -Limit lifting, bending, twisting, pushing, or pulling to nothing >5lbs. -I discussed treatment options with the patient, including operative and non- operative options, and they have elected to proceed with the following surgical procedure: T12 Kyphoplasty The indications, risks, benefits, and alternatives to surgery were discussed with the patient at length. Specifically (but not limited to) the risks of infection, stiffness, recurrence of symptoms, need for revision surgery, local numbness, neurovascular injury, and blood clots were discussed. The patient's questions were answered. The decision to proceed was made. Consent will be obtained for the procedure. -OK for massage or other alternative treatment modalities as able. If it exacerbates your sx do not continue -Ambulate daily -Take medications as directed -Ice and rest for pain and swelling control. FOLLOW UP:Post procedure with Dr. Uriostegui HISTORY: Mr. Sampson presents to the office today, 01/03/25, for an evaluation of his thoracic injury. Patient describes an aching and intermittent sharp mid-low back pain with an onset of 12/29/24 after he fell backward landing on his back. Patient states he was able to get up aftr incident and went to [facility] ER for evaluation. Patient was informed he has a T12 vertebral compression fracture. He was ordered a TLSO brace and provided IBU 800mg for symptom management. Patient states his pain is exacerbated with changing position from sitting to standing and getting up from a laying position. Otherwise patient denies any f/c/sob/cp, perineal numbness or tingling, bowel or bladder incontinence/retention. Patient is ambulatoryindependently. The patients' past social, medical, family, surgical history, as well as review of systems, have been reviewed. Please refer to the Neurosurgery History and Physical form that has been scanned into our electronic medical record system. 16 points review of systems completed and as stated in HPI, all other systems reviewed are negative. PAST TREATMENTS: Physical Therapy in the past 6 months? No Did it help? n/a Physician Directed Home Exercises: No Medications: IBU 800mg Alternative Interventions: Chiropractic: No Massage therapy: No R.I.C.E: Yes Brace: Yes Injections: No P3 Social History: .CE:Clinical Elements: Smoking: none P3 .CE:Clinical Elements: Alcohol: occasional alcohol P3 P3 Family History: Reviewed, see appropriate section of the chart for details. P2 Past Medical History: Reviewed, see appropriate section of the chart for details. P1 Current Medications: Rx: aspirin 81 mg tablet,delayed release Ref: 0 Instructions: take 1 tablet (81 mg) by oral route once daily Rx: atorvastatin 40 mg tablet Ref: 0 Instructions: take 1 tablet (40 mg) by oral route once daily Rx: clopidogreL 75 mg tablet Ref: 0 Instructions: take 1 tablet (75 mg) by oral route once daily Rx: Multi-Vitamin Ref: 0 Instructions: ONE DAILY P1 RADIOGRAPHS: XRay Thoracic AP/lateral 2 views taken at [facility] 01/03/25: Mild kyphotic deformity of the thoracic spine. There is an acute vertebral compression fracture of T12 that has progressed in comparison to imaging taken on 12/30/2024. Remaining vertebral body heights are preserved. CT [facility] of [facility]: IMPRESSION: Acute fracture deformity of the T12 vertebral body with mild superior endplate height loss. Fracture line extends into the T11/T12 intervertebral disc space but does not involve the posterior cortex. No evidence of retropulsion. No high- grade spinal canal stenosis. PHYSICAL EXAM: General: AOX3, NAD, Well hydrate, Well nourished HEENT: No lumps or masses Extremities: No color changes, no pooling Hairy Patches: ABSENT Dorsal Skin Dimples: Normal [employer] spots: ABSENT Surgical Incisions: No Muscle Appearance: Well formed, no atrophy Palpation: Midline:YES AROUND T12 Paracervical: NO Parathoracic: YES, AROUND T12, L1 Paralumbar: NO Postural Balance: Coronal: BALANCED Sagittal: BALANCED Shoulder height: LEVEL Pelvic Girdle: LEVEL SIJ Testing: No ROM and Appearance: Neck: UNRESTRICTED Lumbar: RESTRICTED Shoulders: Symmetrical Hips: Symmetrical Knees: Symmetrical Hands: Symmetrical Feet: Symmetrical VASCULAR STATUS: RUE- 2 LUE-2 RLE-2 LLE-2 Edema: NONE NEUROLOGICAL EXAMINATION: Mental Status: Awake, alert, oriented fully with normal attention, concentration and memory. Fluent appropriate speech. CRANIAL NERVES: I: Olfactory not tested. II: Visual acuity normal, no visual field deficit noted with confrontation. III,IV: Normal pupillary reflexes & intact extraocular movements without nystagmus. V,: Intact symmetrical facial sensation. VII: Intact symmetrical facial motor movementVIII: Hearing intact. IX,X: Intact gag, swallow, & normal voice. XI: Sternocleidomastoid, trapezius function intact. XII: Tongue midline with normal movements. TENSIONING: L'HERMITTE'S SIGN NEG SPURLUNG'S SIGN NEG CUBITAL COMPRESSION NEG TINELS AT WRIST NEG SLR/CROSSED SLR NEG MOTOR EXAM (0-5/5, NT) Muscle appearance:Symmetrical, without signs of atrophy or dystrophy UPPER EXTREMITY RIGHT LEFT Shoulder Abduction 5 5 Biceps 5 5 Triceps 5 5 Wrist Extension 5 5 Hand Intrinsics 5 5 Corrections Sergeant 5 5 -Hand and finger dexterity intact bilaterally? YES -Dysdiadochokinesia examination negative bilaterally? YES LOWER EXTREMITY RIGHT LEFT Hip Flexion 5 5 Knee Extension 5 5 Knee Flexion 5 5 Dorsiflexion 5 5 Plantarflexion 5 5 EHL 5 5 FHL 5 5 REFLEXES (0-4/2, NT) RIGHT LEFT Bicep 2 2 Brachioradialis 2 2 Tricep 2 2 Patellar 2 2 Achilles 2 2 PATHOLOGICAL REFLEXES: Hoffmans: ABSENT BL Clonus: ABSENT BL Babinski: NEG BL Rectal Tone: INTACT SENSATION (0-4, NT): RUE-2LUE-2 RLE-2 LLE-2 Dermatomal deficit: T12 GAIT AND FUNCTIONAL EVALUATION: Ambulatory aids- INDEPENDENT Rombergs test- NEG toe/heel walk- INTACT Squatting to a min of 60 deg and back- UNABLE Single leg stance- ABLE Hand to finger (nose)- ABLE smooth Trendelenburg sign negative bilaterally PATIENT EDUCATION: Medications Reviewed: YES In our visit today Mr. Sampson and I have had a chance to go over my understanding of the patient's current condition, the natural course history without intervention and various interventional options. Questions were invited and answered, and the patient wishes to proceed as outlined above. I will be sure to keep you updated after Mr. Sampson returns here for further follow-up. Thank you again for your referral. Please do not hesitate to contact me if you have any further questions. Signed and authenticated by: Lyudmila Martin MSN, BUSINESS PLANNING DIRECTOR-C [facility] [address] [place] [id number] This message is confidential, intended only for the named recipient(s) and may contain information that is privileged or exempt from disclosure under applicable law. If you are not the intended recipient(s), you are notified that the dissemination, distribution or copying of this information is strictly prohibited. If you received this message in error, please notify the sender then delete this message. #Orders: XrayThoracicSpine # SIGNED BY JENNIFER Beaver, Nurse Practitioner (STO)01/07/2025 08:27AM # REVISED BY Manuel Uriostegui (GOO)01/10/2025 10:44AM .D:Date: 01/16/25 : 07:46am .T:Title: AUTHORIZATION REQUEST AND MEDICAL NECESSITY RATIONAL CLINICAL SUMMARY: Mr. Jamal Sampson is a 74-year-old male who presented to [facility] following a fall from standing height on 12/29/24, resulting in an acute T12 compression fracture. CT imaging revealed mild superior endplate height loss with fracture line extension into the T11/T12 disc space, without retropulsion or spinal canal stenosis. Physical examination demonstrates preserved neurological function with only T12 dermatomal deficit, restricted lumbar ROM, and midline/parathoracic tenderness around T12-L1. The patient reports a VAS pain score of 2/10, with vital signs showing BP 130/78 and BMI 28.92 kg/m2. CT quantitative analysis indicates osteoporotic bone quality (HU=86). Despite initial conservative management including TLSO bracing and IBU 800mg, follow-up imaging shows fracture progression. Given these findings, along with the patient's preserved functional status and absence of contraindications, T12 kyphoplasty has been recommended and consented for to prevent further deformity and provide fracture stabilization. Medical Necessity Note: The patient is a 74-year-old male who presented following a fall from standing height on 12/29/24, resulting in an acute T12 vertebral compression fracture. Detailed imaging studies, including CT scan and X-rays, confirm the presence of an acute fracture with several concerning features: mild superior endplate height loss, fracture line extension into the T11/T12 intervertebral disc space, and documented progression on follow-up imaging from 01/03/25. The patient experiences significant pain, rated 2/10 on the VAS scale, which is notably exacerbated during specific movements, particularly during postural transitions from sitting to standing and when attempting to rise from a supine position. Conservative management has been initiated, including the implementation of a TLSO brace and prescription of IBU 800mg for pain control. However, the patient continues to demonstrate restricted lumbar range of motion on physical examination, and imaging reveals progression of the fracture deformity. Given the patient's age, the acute nature of the injury, and the documented progression despite conservative measures, more definitive intervention is warranted to prevent further vertebral collapse, potential chronic pain development, and possible neurological complications. Vertebral compression fractures (VCFs) are widely recognized as fragility fractures and serve as clear indicators of underlying osteoporosis. The patient's CT scan demonstrates a mean Hounsfield Unit (HU) value of 86, which falls well below the established threshold for osteoporosis diagnosis. This radiological finding, combined with the presence of a low-energy fracture from a standing height fall, provides sufficient diagnostic criteria for osteoporosis according to current clinical guidelines. Requiring additional bone density testing would unnecessarily delay appropriate clinical care and potentially expose the patient to further fracture risk during the waiting period. The immediate implementation of both fracture-specific treatment (kyphoplasty) and osteoporosis management is crucial for optimal patient outcomes. Delaying intervention while awaiting formal DXA scanning would not alter the treatment algorithm at this point, as the combination of quantitative CT findings (HU = 86) and the presence of a fragility fracture already establishes the diagnosis of osteoporosis with high specificity. This approach aligns with current best practices in managing acute vertebral compression fractures in the elderly population, where prompt intervention can prevent further vertebral body collapse and subsequent complications. Surgical Rationale Note: Following comprehensive evaluation and detailed discussion of all available treatment options, T12 kyphoplasty has been determined to be the most appropriate surgical intervention for this patient. This determination is based on multiple critical factors: 1) the acute nature of the compression fracture with radiographically documented progression despite conservative management, 2) the patient's well-preserved neurological status with only T12 dermatomal deficit and intact motor function, 3) favorable anatomical factors including the absence of retropulsion or high-grade spinal canal stenosis that would contraindicate kyphoplasty, and 4) the patient's current functional status, which while maintaining independence, is significantly limited by position- dependent pain. The proposed kyphoplasty procedure offers several specific advantages for this patient's condition. The minimally invasive approach will allow for vertebral height roman catholic through balloon inflation, followed by stabilization of the fracture with cement augmentation. This intervention aims to prevent further progression of kyphotic deformity while providing immediate pain relief through fracture stabilization. The patient's medical profile, including stable vital signs (BP 130/78) and BMI of 28.92 kg/m2, suggests he is a suitable candidate for this procedure. During our comprehensive consultation, the patient has been thoroughly educated regarding the procedural risks, including but not limited to cement leakage, infection, and bleeding, as well as the expected benefits and alternative treatment options. The patient demonstrates clear understanding and has expressed a desire to proceed with the recommended intervention. # SIGNED BY Manuel Uriostegui (GOO)01/16/2025 07:50AM Past Medical History Past Medical History: CVA/TIA, Hyperlipidemia Additional Past Medical History / Comment(s): TIA 2 yrs. ago-no residual effects, left eye stroke-sees retinal dr-did affect a little w/vision, fell on frozen ground Fe. 2nd & fx. thoracic vertebrae 12-wearing back brace, has aortic aneurysm "sac" that [facility] is monitoring History of Any Multi-Drug Resistant Organisms: None Reported Past Surgical History: Orthopedic Surgery, Tonsillectomy Additional Past Surgical History / Comment(s): arthroscopic left knee, left heel spur removed, lump removed left armpit Past Anesthesia/Blood Transfusion Reactions: No Reported Reaction Smoking Status: Never smoker - Past Family History Mother Family Medical History: No Reported History Medications and Allergies Home Medications Medication Instructions Recorded Confirmed Type Aspirin [[place] Aspirin EC] 81 mg PO DAILY 11/22/18 01/16/25 History Atorvastatin [Lipitor] 40 mg PO HS 11/22/18 01/16/25 History Calcium Carbonate [Calcium] 600 mg PO DAILY 11/22/18 01/16/25 History Glucosamine-Chondr 500-400Mg 1 tab PO DAILY 11/22/18 01/17/25 History Cyclobenzaprine [Flexeril] 10 mg PO TID PRN #20 tablet 12/30/24 01/16/25 Rx Ibuprofen [Motrin] 600 mg PO Q6HR PRN #20 tab 12/30/24 01/17/25 Rx Clopidogrel [Plavix] 75 mg PO DAILY 01/16/25 01/16/25 History Calcium Carbonate/Vitamin D3 1 each PO DAILY 01/17/25 01/17/25 History [Calcium 600 mg-D3 20 mcg (800 unit)] Cholecalciferol (Vitamin D3) 2,000 unit PO DAILY 01/17/25 01/17/25 History [Vitamin D3 (50 Mcg = 2000 Iu) Chew Tab] Multivitamins, Thera [Multivitamin 1 tab PO DAILY 01/17/25 01/17/25 History (formulary)] Thiamine [Vitamin B-1] 100 mg PO DAILY 01/17/25 01/17/25 History Allergies Allergy/AdvReac Type Severity Reaction Status Date / Time No Known Allergies Allergy Verified 01/16/25 10:57 Physical Examination Osteopathic Statement: *. No significant issues noted on an osteopathic structural exam other than those noted in the History and Physical/Consult.
[~2025-01-21 06:33] MED LIST: LACTATED RINGERS 1,000 ML IV SCH; LIDOCAINE 1% (10MG/ML) FOR IV START INTRADERMA PRN; TRANEXAMIC 1,000 MG/100ML-NACL 1,000 MG in SALINE 1 100ML.BAG IVPB PRN
[2025-01-21] MEDS: IV FLUID CONTINUATION 1,000 ML IV ONE ×3 (06:44→08:50)
[2025-01-21] MEDS ORDERED: HYDROmorphone 0.5 MG/0.5 ML SYRINGE IVP PRN (07:00)
[2025-01-21 07:06] VITALS: RESP 16; TEMP 97.2
[2025-01-21] MEDS ORDERED: MIDAZOLAM 2 MG/2 ML VIAL ONE (07:24)
[2025-01-21] MEDS: ONDANSETRON 4 MG/2 ML VIAL IVP PRN (07:24)
[2025-01-21] MEDS: ACETAMINOPHEN TAB 500 MG TAB PO PRN (07:24)
[2025-01-21] MEDS: GABAPENTIN 300 MG CAP PO PRN (07:24)
[2025-01-21] MEDS ORDERED: LIDOCAINE 1% INJ 10MG/ML (20 ML MDV) ONE (07:24)
[2025-01-21] MEDS ORDERED: PROPOFOL 10 MG/ML 20 ML VIAL IV ONE (07:24)
[2025-01-21] MEDS ORDERED: SUCCINYLCHOLINE CHLORIDE 200 MG/10 ML VIAL IV ONE (07:24)
[2025-01-21] MEDS ORDERED: fentaNYL (PF) 50 MCG/ML 2 ML AMP ONE (07:24)
--- NOTE | 2025-01-21 07:26 | P.PN ---
Progress Note - Text Progress Note Date: 01/21/25 H&P UPDATE: THERE ARE NO CHANGES TO THE H&P IN THE LAST 30 DAYS. PT S/E IN THE PRE OP AREA. HE IS DOING WELL. STATES PAIN IN BACK HAS DECREASED BUT STILL THERE AND HURTS WHEN HE MOVES, STANDS OR SIT TO STAND. HE HAS NOT BEEN SLEEPING IN BED DUE TO THE PAIN AND HAS BEEN IN A RECLINER IT IS EASIER FOR HIM. HE STATES NO BOWEL OR BLADDER ISSEUS. NO LE NUMBNESS/TINGLING OR WEAKNESS. DENIES ANY OTHER SX. NO BHT OR LOC WITH THE FALL. CANNOT REMEMBER IF HE HIT ANYTHING ON THE WAY DOWN. DENIES ANY OTHER INJURY. RISKS AND BENEFITS DISCUSSED AGAIN BELOW. HE IS READY TO PROCEED. Spine Surgery Clinical and Risk Review JOSEFINA GARCIA is a 74 YO MALE presenting for evaluation of MID BACK PAIN AFTER FALL FROM STANDING AT HOME. It was my pleasure to have seen and examined JOSEFINA GARCIA. In our visit today we have had a chance to go over subjective complaints, physical examination findings and treatments including the natural course history without intervention and various interventional options. The patient's imaging demonstrates the following: * XR AND CT OF T/L SPINE REVIEWED AND DEMONSTRATE T12 VCF WITH BURST COMPONENT AOA3 TYPE WITH SMALL FRACTURE LINE EXTENDING INTO INFERIOR ENDPLATE BUT DOES NOT GO ALL THE WAY THROUGH. * ALIGNMENT STABLE * OLD THORACIC FRACTURE HIGHER UP UNDETERMINED LEVEL On a physical exam, JOSEFINA GARCIA demonstrates the following: * TTP MIDLINE AROUND T12/L1 * PAIN WITH FORWARD FLEXION AND EXTENSION/ROTATION * PAIN WITH WALKING * 5/5 STRENGTHS UE AND LE * SILT ALL * DTR 2/4 ALL * NO PATHOLOGICAL REFLEXES I have explained to the patient that as their condition progresses it will cause further neurological deficits and eventual paralysis. Based on the patients imaging, physical exam, and the rapid progression and disabling nature of their symptoms, at this time I recommend surgery in the form of a: T12 KYPHOPLASTY WITH BIOPSY I discussed the risk and benefits of this procedure at length with JOSEFINA GARCIA. The patient and family agreed to consider pursuing the procedure above mentioned. Prior to surgery, they should follow up with her PCP (Cardio, ID, IM etc) for clearance. Questions were invited and answered, and the patient wishes to proceed as outlined below. Currently, I am recommendin. T12 KYPHOPLASTY WITH BIOPSY 2. Obtain appropriate presurgical workup and clearances as discussed with the patient. 3. Review of surgical risks and benefits as well as an educational packet on the proposed surgical procedure. Risks: All surgical procedures come with inherent risks, including those related to positioning, anesthesia, intraoperative findings, and postoperative complications. It is important to understand that surgery does not come with any guarantee of a successful outcome as complications and adverse events are always possible. The patient was given a handout in the office today discussing the surgical procedure and risks associated with the intervention, both of which were discussed with the patient. These risks include but are not limited to the following: Experiencing same, different or even worse symptoms in back, neck, arms, or legs compared to before surgery. Requiring further surgery or other forms of treatment presently or at some time in the future at same or other levels of the intended spine surgery. On an extreme but fortunately relatively rare basis severe complications such as blindness, stroke, heart attack, temporary and/or permanent nerve injury, paralysis, coma, or may occur, sometimes without known explanation. Surgical complications may include but are not limited to risk of infection, fluid accumulation in the surgical dissection site, including a seroma or hematoma, that requires additional surgery, wound drainage, bleeding, new numbness or weakness, vision changes/loss, spinal fluid leakage, non-healing and/or infected incision, headaches, difficulty or inability to swallow, hoarseness, hemopneumothorax, pneumothorax, impotence, retrograde ejaculation, vaginal dryness; injury to nerves, spinal cord, blood vessels, lymphatics or other vital organs (i.e., bowel injury, injury to the great vessels); heterotopic bone formation; complications related to the hardware such as scre ws, rods, cages including misplaced hardware, device failure, instrumentation at the wrong spine level, hardware fracture/breakage, or hardware loosening; vertebral failure of the spinal column above or below the newly placed hardware; retained surgical instrumentations or devices and the need for further surgery. Medical risks of the planned spine surgery include but are not limited to generalized Infections to the whole body or local areas outside of the surgical site (sepsis), heart attack, bleeding, anaphylaxis, meningitis, seizure, epilepsy, hearing loss, burn mariee, laceration of the head or other areas of the body, bruising, hypersensitivity of the skin, bladder over distension; allergic reaction; shoulder injury related to positioning; fat, blood and air clots to other areas of the body like heart, lungs, brain; failure of internal organs such as lungs, kidneys, liver and excessive bleeding. If blood transfusions are necessary, note that transfusions may cause intolerance reactions such as anaphylaxis or other complex reactions. Despite best efforts, the results of spine surgery might not heal in terms of bone, soft tissues such as skin, fascia, ligaments, and joints. Additionally, in order to achieve best possible results, spine surgery may be carried out beyond the initially planned levels and involve decompression, fusion including insertion of hardware at levels other than the original intended area of surgical interest change some portions of the procedure in order to ensure the best possible outcomes. With spine surgery and spinal fusion, there are different off label uses of instrumentation (devices, implants and hardware) as well as biological substances (bone morphogenic proteins, demineralized bone matrix) as well as using extra bone from allograft sources (i.e. cadaver bone) or autograft (iliac crest bone, ribs, or the spine itself). The patient has been given information about these practices and their inherent risks and benefits. The patient has had a chance to review all the listed information, has been given print outs detailing this information, and has had all his/her questions answered to their satisfaction. It was my pleasure to have seen and examined JOSEFINA GARCIA. In our visit today we have had a chance to go over my understanding of our patient's current condition, the natural course history without intervention and various interventional options. Questions were invited and answered, and the patient wishes to proceed as outlined above. I have seen and examined the patient for 25 minutes and we have spent more than 50% of the time in repeat and detailed counseling about the patient's condition, its natural course history without and as much as can be predicted with surgery and re-review of various surgical treatment options. In conclusion, JOSEFINA GARCIA and their family requested we proceed with the above suggested surgery and are willing to accept risks and limitations of the suggested surgery as the nature of the disease process and our best attempts at treatment for the condition. Thank you again for allowing us to be part of your patient's care. Please don't hesitate to contact me if you have any further questions. Signed and authenticated by: Manuel Murillo [facility] [address] [place] [address]
[2025-01-21] MEDS: LIDOCAINE 2%-EPI 1:100,000 20 ML VIAL SQ ONE (07:52)
[2025-01-21] MEDS: IOPAMIDOL M200 10 ML VIAL MISCELLANE ONE (07:52)
[2025-01-21] MEDS: BUPIVACAINE (PF) 0.5% 30 ML VIAL SQ ONE (07:52)
--- NOTE | 2025-01-21 08:06 | P.OP ---
Date of Procedure: 01/21/25 Preoperative Diagnosis: 1. T12 BURST COMPRESSION FRACTURE AOA3 2. MID/LOW BACK PAIN 3. 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 T12 BURST COMPRESSION FRACTURE AOA3 2. MID/LOW BACK PAIN 3. DEBILITY DUE TO ABOVE 4. 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 T12 KYPHOPLASTY WITH BIOPSY Implants: [employer]RIST[employer] CEMENT Anesthesia: GETA Surgeon: Manuel Uriostegui Estimated Blood Loss (ml): 2 IV fluids (ml): 500 Urine output (ml): 0 Pathology: other (T12 VERTEBRAL BODY) Condition: stable Disposition: PACU Indications for Procedure: JOSEFINA GARCIA is a 74 YO MALE presenting for evaluation of MID BACK PAIN AFTER FALL FROM STANDING AT HOME. It was my pleasure to have seen and examined JOSEFINA GARCIA. In our visit today we have had a chance to go over subjective complaints, physical examination findings and treatments including the natural course history without intervention and various interventional options. The patient's imaging demonstrates the following: * XR AND CT OF T/L SPINE REVIEWED AND DEMONSTRATE T12 VCF WITH BURST COMPONENT AOA3 TYPE WITH SMALL FRACTURE LINE EXTENDING INTO INFERIOR ENDPLATE BUT DOES NOT GO ALL THE WAY THROUGH. * ALIGNMENT STABLE * OLD THORACIC FRACTURE HIGHER UP UNDETERMINED LEVEL On a physical exam, JOSEFINA GARCIA demonstrates the following: * TTP MIDLINE AROUND T12/L1 * PAIN WITH FORWARD FLEXION AND EXTENSION/ROTATION * PAIN WITH WALKING * 5/5 STRENGTHS UE AND LE * SILT ALL * DTR 2/4 ALL * NO PATHOLOGICAL REFLEXES I have explained to the patient that as their condition progresses it will cause further neurological deficits and eventual paralysis. Based on the patients imaging, physical exam, and the rapid progression and disabling nature of their symptoms, at this time I recommend surgery in the form of a: T12 KYPHOPLASTY WITH BIOPSY I discussed the risk and benefits of this procedure at length with JOSEFINA GARCIA. The patient and family agreed to consider pursuing the procedure above mentioned. Prior to surgery, they should follow up with her PCP (Cardio, ID, IM etc) for clearance. Questions were invited and answered, and the patient wishes to proceed as outlined below. Currently, I am recommendin. T12 KYPHOPLASTY WITH BIOPSY Description of Procedure: THORACIC 12 KYPHOPLASTY WITH BIOPSY The patient was seen and examined in the preoperative area. All preoperative protocols were followed. Informed consent was obtained, risks and benefits of the procedure were discussed at length. Risks including bleeding infection damage to the surrounding tissue and risk of reoperation were discussed with the patient. Risk of anesthesia up to and including was discussed with the patient. These are outlined in the risk review. They were willing to accept these risks and all the risks of surgery. The patient was given a weight-based dose of antibiotics in the form of 2 g Ancef. The patient was seen and evaluated by the anesthesia team who deemed them fit for surgery. The site was marked, the patient was willing to proceed with the procedure. The patient was transferred to the operative suite by the Department of anesthesia. They were then drifted off to sleep by the department anesthesia and GETA was performed. The patient tolerated this well. Once confirmation of lines and ventilation the patient was transferred to a prone Enrique table very carefully. All bony prominences including wrists, elbows, axilla, chest, hips, and thighs, and feet were padded very well. Special attention was paid to the genitalia, and these were padded accordingly. SCDs were placed on bilateral lower extremities and were connected. Arms were well padded and placed on arm boards up and out in the 90/90 position. Once in position, again we confirmed good ventilation capabilities and that lines were running appropriately. The patients Lumbar spine was then exposed. 1010s were placed outlining the incision site. Standard alcohol was used to clean the incision site and allowed to dry. C-arm was used to needle localize the pedicles at T12 and bio-john the patient and confirm level for incision which was marked with a skin marker. Operative briefing was performed with all teams and everyone in agreement to proceed. The patient was then prepped and draped in a normal sterile fashion. Timeout was then performed, and all parties agreed with the procedure to be performed. Skin chip was made. Jamshitdi was passed into the T12 vertebral body via the pedicle bilateral. This was done with biplane fluoroscopy. Once in good position in the body the trochar is removed. A biopsy needle was passed into the body and a biopsy was taken. Drill was then passed and biopsy material taken from drill as well. Curette then used to reduce endplate and create more space. Balloon was then passed an inflated which showed good reduction of endplate on AP and Lateral and confirmed central placement. The cement was then placed and pt remained stable. A good fill of cement was seen without extravasation. Once good fill, the Jamshedi was removed and the wound irrigated. The skin was closed with a simple stitch and dressed with a bandaid. The patient was then transferred off the table back to their hospital bed a- traumatically. They were extubated by the department of anesthesia. They were then transferred to PACU in stable condition having tolerated the procedure with no complications.
--- NOTE | 2025-01-21 08:41 | FL ---
Fluoroscopy INDICATION: Pain FINDINGS: Fluoroscopy time: 5 seconds. Total dose area product (DAP) in uGy*m?, mGy*cm? (or similar): 8.1035 Images obtained: 0. IMPRESSION: 1. Documentation of fluoroscopy. [facility], , 01/21/2025 8:38 AM
--- NOTE | 2025-01-21 08:43 | XR ---
Fluoroscopy INDICATION: Pain FINDINGS: Fluoroscopy time: 1 minute 5.2 seconds. Total dose area product (DAP) in uGy*m?, mGy*cm? (or similar): 8.1035 Images obtained: 9. IMPRESSION: 1. Documentation of fluoroscopy. [facility], , 01/21/2025 8:41 AM
[2025-01-21 10:23] VITALS: BP 154/69; PULSE 59
== END 2025-01-21 11:19 | disposition home or self-care (01) ==
LOC: OR 06:33
PROVIDERS: ATTEND Orthopaedic Surgery
DX: S22.081A Stable burst fracture of T11-T12 vertebra, initial encounter for closed fracture (principal); W18.30XA Fall on same level, unspecified, initial encounter; M54.50 Low back pain, unspecified; M81.0 Age-related osteoporosis without current pathological fracture; E78.5 Hyperlipidemia, unspecified; I71.9 Aortic aneurysm of unspecified site, without rupture; Z86.73 Personal history of transient ischemic attack (TIA), and cerebral infarction without residual deficits; Z79.82 Long term (current) use of aspirin; Z79.899 Other long term (current) drug therapy; Z79.02 Long term (current) use of antithrombotics/antiplatelets; Z98.890 Other specified postprocedural states; Z90.89 Acquired absence of other organs
CPT/HCPCS: 22513; 88307; 88311; 72070; J2250; J0330; J0690; J2405; J2003; J3010; J2704; Q9966; J0665